=== PATIENT | female | born 1960 | race African-American/Black ===

== ENCOUNTER 2019-05-21 10:47 | Emergency (ER) | payer SELFPAY ==
[~2019-05-21] VITALS: Ht 152.4 cm; Wt 59.4 kg
[2019-05-21] MEDS ORDERED: LOSA50TA14 PO (11:01)
--- NOTE | 2019-05-21 11:06 | NUR ---
MED REC COMPLETED BY THIS RN IN TRIAGE. EKG COMPLETED IN TRIAGE BY EMS STUDENT.
--- NOTE | 2019-05-21 11:47 | NUR ---
THIS IS A 59 YO FEMALE WHO PRESENTS TO THE ER C/O CONT HTN DEPSITE COMPLIANCE WITH MEDICATIONS AND YODER X 2 WEEKS. PT DENIES N/V. PT DENIES PHOTOSENSITIVITY. FACE SYMMETRICAL. PLUMBING INSTALLER EQUAL BILATERALLY. SPEECH CLEAR. PT AO X 4. SIGNIFICANT OTHER AT BEDSIDE. PT REFUSING LAB DRAW, BUT AGREES TO PAIN MEDICATION FOR YODER AND CT SCAN. MEDICATION REQUESTED FROM PHARMACY. PT ON CONT BP AND O2 MONITORS. SIGNIFICANT OTHER AT BEDSIDE. CALL LIGHT WITHIN REACH. WILL CONT TO MONITOR PT.
[2019-05-21] MEDS ORDERED: BUTALB/APAP/CAFFEINE 50MG/325MG/40MG PO ONE (12:00)
[2019-05-21] MEDS ORDERED: HYDROCHLOROTHIAZIDE 25 MG TABLET PO ONE (14:00)
[2019-05-21 14:05] VITALS: BP 146/89
--- NOTE | 2019-05-21 14:15 | NUR ---
TASK RN: PT AWARE OF DC PLAN. GETTING DRESSED NOW.
== END 2019-05-21 14:21 | disposition home or self-care (01) ==
LOC: ED 13:24
DX: I10 Essential (primary) hypertension (principal); R51 Headache
CPT/HCPCS: 70450; 93005; 99284